=== PATIENT | male | born 1945 | race Caucasian/White ===

== ENCOUNTER 2018-04-30 06:48 | Emergency (ER) | payer MEDICARE, OTHER ==
[~2018-04-30] VITALS: Ht 177.8 cm; Wt 83.0 kg
--- OUTSIDE RECORDS SUMMARY | 2018-04-30 06:55 | XMS REPORT | Continuity of Care Document ---
Author Author [facility] Organization [facility] Address Unknown Phone Unavailable Allergies There is no data. Medications There is no data. Problems Date Dx Coded Attending Type Code Diagnosis Diagnosed By 06/12/2015 ROLANDO QUINTANILLA MD Ot R01.1 06/18/2015 ROLANDO QUINTANILLA MD Ot R01.1 Procedures There is no data. Results There is no data. Encounters ACCT No. Visit Date/Time Discharge Status Pt. Type Provider Facility Loc./Unit Complaint [id number] 05/22/2015 12:43:00 05/22/2015 23:59:59 CLS Outpatient ROLANDO QUINTANILLA MD [facility] CARD [id number] 11/26/2013 14:33:00 11/26/2013 23:59:59 CLS Outpatient
[2018-04-30] MEDS ORDERED: ATOR20TA66 (07:45)
[2018-04-30] MEDS ORDERED: LISI-552 (07:45)
[2018-04-30 08:12] LABS: ALANINE AMINOTRANSFERASE 28 U/L (0-55); ALBUMIN 4.3 GM/DL (3.2-4.5); ALKALINE PHOSPHATASE 57 U/L (40-136); BUN/CREATININE RATIO 17; CALCIUM 9.7 MG/DL (8.5-10.1); CARBON DIOXIDE 23 MMOL/L (21-32); CHLORIDE 108 MMOL/L (98-107); CREATINE KINASE 99 U/L (30-200); CREATININE SERUM 1.06 MG/DL (0.60-1.30); GFR ESTIMATED > 60; GLUCOSE 106 MG/DL (70-105); MAGNESIUM 2.3 MG/DL (1.8-2.4); POTASSIUM 4.4 MMOL/L (3.6-5.0); SODIUM 139 MMOL/L (135-145); TOTAL PROTEIN 7.4 GM/DL (6.4-8.2)
--- NOTE | 2018-04-30 08:55 | ED General ---
General Chief Complaint: Cardiac/General Problems Stated Complaint: HIGH BLOOD PRESSURE 194/109 Nursing Triage Note: PT PRESENTS TO ER WITH COMPLAINT OF DIZZINESS, FEELING WEIRD, AND HEADACHE. STATES HEADACHE STARTED LAST NIGHT. STATES BLOOD PRESSURE THIS MORNING WAS HIGH. HIGHEST WAS 190/100 Nursing Sepsis Screen: No Definite Risk Source of Information: Patient Exam Limitations: No Limitations History of Present Illness Date Seen by Provider: Apr 30, 2018 Time Seen by Provider: 08:11 Initial Comments Here with report of high blood pressure and dizziness this morning. Did have an episode of sweating. Stated he had a headache last night and took some Tylenol. This morning his blood pressure was high he felt a little weak and dizzy. Did note the sweating when he was having this issue. All of this is subsequently resolved although his blood pressure remains slightly elevated. Normally takes lisinopril just at night. Denies nausea or vomiting. Denies chest pain or breathing problems. Timing/Duration: 12-24 Hours Severity: Mild, Moderate Associated Systoms: No Chest Pain, No Cough; Diaphoresis; No Fever/Chills; Headaches; No Nausea/Vomiting, No Shortness of Air, No Weakness Allergies and Home Medications Allergies Coded Allergies: No Known Drug Allergies (Unverified , 04/30/18) Patient Home Medication List Home Medication List Reviewed: Yes Review of Systems Review of Systems Constitutional: see HPI; No chills, No fever EENTM: no symptoms reported Respiratory: no symptoms reported Cardiovascular: see HPI; No chest pain; other (dizziness and high blood pressure) Gastrointestinal: no symptoms reported Genitourinary: no symptoms reported Musculoskeletal: no symptoms reported Skin: no symptoms reported Psychiatric/Neurological: See HPI, Headache (global mild); Denies Weakness; Other (dizziness) Hematologic/Lymphatic: No Symptoms Reported All Other Systems Reviewed Negative Unless Noted: Yes Past Ctlhvem-Tscocl-Wnyypj Hx Past Med/Social Hx: Reviewed Nursing Past Med/Soc Hx Patient Social History Alcohol Use: Denies Use Recreational Drug Use: No Smoking Status: Never a Smoker Recent Foreign Travel: No Contact w/Someone Who Travel: No Recent Infectious Disease Expo: No Recent Hopitalizations: No Immunizations Up To Date Tetanus Booster (TDap): Unknown PED Vaccines UTD: Yes Seasonal Allergies Seasonal Allergies: No Past Medical History Surgeries: Yes Orthopedic, Tonsillectomy Respiratory: No Cardiac: Yes High Cholesterol, Hypertension Neurological: No Genitourinary: No Gastrointestinal: No Musculoskeletal: No Endocrine: No HEENT: No Cancer: No Integumentary: No Blood Disorders: No Family Medical History Reviewed Nursing Family Hx Physical Exam Vital Signs Vital Signs - First Documented 04/30/18 07:30 Temp 98.9 Pulse 59 Resp 20 B/P (MAP) 190/87 (121) Pulse Ox 96 O2 Delivery Room Air Capillary Refill : Less Than 3 Seconds Height, Weight, BMI Height: 5'10.00" Weight: 183lbs. oz. 83.990246bn; BMI Method:Stated General Appearance: No Apparent Distress, WD/WN HEENT: PERRL/EOMI, Pharynx Normal Neck: Non Tender, Supple Respiratory: Lungs Clear, Normal Breath Sounds Cardiovascular: Regular Rate, Rhythm, No Murmur Gastrointestinal: Non Tender, Soft Back: Normal Inspection, No CVA Tenderness, No Vertebral Tenderness Extremity: Normal Range of Motion, Non Tender Neurologic/Psychiatric: Alert, Oriented x3 Skin: Normal Color, Warm/Dry Progress/Results/Core Measures Suspected Sepsis Recent Fever Within 48 Hours: No Infection Criteria Present: None New/Unexplained Altered Menta: No Sepsis Screen: No Definite Risk SIRS Temperature:98.9 Pulse: 59 Respiratory Rate: 20 Blood Pressure 190 /87 Mean: 121 Laboratory Tests 04/30/18 07:40: Creatinine 1.06, Total Bilirubin 1.0 Results/Orders Lab Results Laboratory Tests Test 04/30/18 07:40 Range/Units D-Dimer 0.60 H 0.00-0.49 UG/ML Sodium Level 139 135-145 MMOL/L Potassium Level 4.4 3.6-5.0 MMOL/L Chloride Level 108 H 98-107 MMOL/L Carbon Dioxide Level 23 21-32 MMOL/L Anion Gap 8 5-14 MMOL/L Blood Urea Nitrogen 18 7-18 MG/DL Creatinine 1.06 0.60-1.30 MG/DL Estimat Glomerular Filtration Rate > 60 BUN/Creatinine Ratio 17 Glucose Level 106 H 70-105 MG/DL Calcium Level 9.7 8.5-10.1 MG/DL Corrected Calcium 9.5 8.5-10.1 MG/DL Magnesium Level 2.3 1.8-2.4 MG/DL Total Bilirubin 1.0 0.1-1.0 MG/DL Aspartate Amino Transf (AST/SGOT) 20 5-34 U/L Alanine Aminotransferase (ALT/SGPT) 28 0-55 U/L Alkaline Phosphatase 57 40-136 U/L Total Creatine Kinase 99 30-200 U/L Troponin I < 0.028 <0.028 NG/ML Total Protein 7.4 6.4-8.2 GM/DL Albumin 4.3 3.2-4.5 GM/DL My Orders Orders - SHELLEY DIAZ MD Ekg Tracing (04/30/18 07:50) Monitor-Rhythm Ecg Trace Only (04/30/18 07:50) Comprehensive Metabolic Panel (04/30/18 07:50) Creatine Kinase (04/30/18 07:50) Magnesium (04/30/18 07:50) Fibrin Degradation Products (04/30/18 08:26) Troponin I (04/30/18 08:26) Ct Angio Chest W (04/30/18 08:55) Ct Head Wo (04/30/18 08:55) Iohexol Injection (Omnipaque 350 Mg/Ml 1 (04/30/18 09:15) Contrast Received (Contrast Received) (04/30/18 09:15) Ns (Ivpb) (Sodium Chloride 0.9% Ivpb Bag (04/30/18 09:15) Ns Iv 1000 Ml (Sodium Chloride 0.9%) (04/30/18 10:11) Amlodipine Tablet (Norvasc Tablet) (04/30/18 10:15) Medications Given in ED Current Medications Medications Dose Ordered Sig/[place] Route Start Time Stop Time Status Last Admin Dose Admin Amlodipine Besylate 5 mg ONCE ONCE PO 04/30/18 10:15 04/30/18 10:16 DC 04/30/18 10:31 5 MG Iohexol 125 ml ONCE ONCE IV 04/30/18 09:15 04/30/18 09:16 DC 04/30/18 09:21 125 ML Sodium Chloride 100 ml ONCE ONCE IV 04/30/18 09:15 04/30/18 09:16 DC 04/30/18 09:21 80 ML Sodium Chloride 1,000 ml @ 0 mls/hr Q0M ONCE IV 04/30/18 10:11 04/30/18 10:13 DC 04/30/18 10:30 1,000 MLS/HR Vital Signs/I&O 04/30/18 07:30 Temp 98.9 Pulse 59 Resp 20 B/P (MAP) 190/87 (121) Pulse Ox 96 O2 Delivery Room Air Capillary Refill : Less Than 3 Seconds Blood Pressure Mean: 121 Progress Note : Progress Note Seen and evaluated. IV, labs, EKG ordered. Monitor patient. D-dimer slightly elevated. We will get a chest CT. Normal saline 1000 mL bolus after. Monitor patient. 0855: D-dimer is slightly elevated. We will get CT angiogram of the chest as well as noncontrast CT of the head due to the dizziness and hypertension. Monitor patient. 1015: I have discussed the case with Dr. Alejandra earlier. Patient's blood pressure is elevated and to 170s and 180s systolic now. Amlodipine [address] Alejandra's instructions were patient was negative on CT scans that he would see him in the office. We will initiate amlodipine 5 mg by mouth daily until patient seen by Dr. Alejandra. CT scans negative. We will discharge the patient after fluid bolus is complete. 1125: Fluid bolus complete. Amlodipine has been given. Blood pressure still in the 170s over 90s but patient is feeling better. We will walk the patient make sure he is doing okay. Tolerated well. Discharged home with return precautions. Patient verbalize understanding instructions and agreement with plan. ECG Initial ECG Impression Date: Apr 30, 2018 Initial ECG Impression Time: 07:54 Initial ECG Rate: 49 Initial ECG Rhythm: Normal Sinus Initial ECG Intervals: Normal Initial ECG Comparisson: No Previous ECG Available Comment Seen and evaluated. Sinus bradycardia with LVH. No evidence of ST elevation PR. No previous EKGs available for comparison. Interpreted by me. Diagnostic Imaging Diagonstic Imaging: CT Plain Films/CT/US/NM/MRI: chest Comments [facility] [place], [place] NAME: MARIAH MCKINNEY [facility] REC#: [id number] PT STATUS: REG ER : 1945 PHYSICIAN: SHELLEY DIAZ MD ADMIT DATE: 04/30/18/ER Draft Date of Exam:04/30/18 CT ANGIO CHEST W PROCEDURE: CT angiography of the chest with contrast. TECHNIQUE: Multiple contiguous axial images were obtained through the chest after uneventful bolus administration of intravenous contrast. 2D reconstructed CTA MIP acquisitions were also performed. INDICATION: Hypertension with headache and dizziness. There is good opacification of the pulmonary arteries without intraluminal filling defect identified. Thoracic aorta is of normal caliber with mild atherosclerotic calcification. Coronary artery calcifications are also noted. The lungs appear clear. There is no evidence of pathologic adenopathy in the chest. No pleural or pericardial fluid is identified. Upper abdominal sections reveal calcified granulomas in the spleen with multiple low-density nodules which likely represent hepatic cysts. There is mild hiatal hernia. IMPRESSION: No CTA evidence of pulmonary embolism or other acute abnormality in the thorax. Dictated on workstation # [id number] Dict: 04/30/18 0946 Trans: 04/30/1849 CV [id number] Interpreted by: DAVIS CAMERON MD Electronically signed by: Janetgonsbora Imaging: CT Plain Films/CT/US/NM/MRI: head Comments [facility] [place] [place] NAME: MARIAH MCKINNEY [facility] REC#: [id number] PT STATUS: REG ER : 1945 PHYSICIAN: SHELLEY DIAZ MD ADMIT DATE: 04/30/18/ER Draft Date of Exam:04/30/18 CT HEAD WO PROCEDURE: CT head without contrast. TECHNIQUE: Multiple contiguous axial images were obtained through the brain without the use of intravenous contrast. INDICATION: Hypertension and headache. Ventricles and sulci are diffusely prominent. There is no evidence of intracranial hemorrhage. There is no geographic low density to indicate a territorial infarct. There is atherosclerotic calcification within the distal internal carotid and vertebral arteries. Calvarium is intact and the visualized paranasal sinuses are clear. Impression: No acute intracranial abnormality is detected. Dictated on workstation # [id number] Dict: 04/30/1844 Trans: 04/30/18946 CV [id number] Interpreted by: DAVIS CAMERON MD Electronically signed by: Departure Impression Primary Impression: Uncontrolled hypertension Additional Impression: Headache Qualified Codes: R51 - Headache Disposition: 01 HOME, SELF-CARE Condition: Improved Departure-Patient Inst. Decision time for Depature: 11:30 Referrals: ROLANDO ALEJANDRA MD (PCP/Family) Primary Care Physician Patient Instructions: Dizziness, Nonvertigo, (DC), Headache, Adult (DC), High Blood Pressure (DC) Add. Discharge Instructions: All discharge instructions reviewed with patient and/or family. Voiced understanding. Take medications as directed. Return for worse pain, fever, vomiting, chest pain, breathing problems, weakness, dizziness, difficulty with speaking, blood pressure greater than 200/110 or other concerns as needed. Call and make an appointment with Dr. Alejandra for this week. Continue home medications as previously prescribed. Scripts Amlodipine Besylate (Amlodipine Besylate) 5 Mg Tablet 5 MG PO DAILY, #30 TAB Prov: SHELLEY DIAZ MD 04/30/18 Copy Copies To 1: ROLANDO ALEJANDRA MD, TIMOTHY D MD Apr 30, 2018 08:55
[2018-04-30] MEDS ORDERED: NS 100 ML (IVPB) BAG IV ONE (09:15)
[2018-04-30] MEDS ORDERED: IOHEXOL 350 MG/ML 150 ML (OMNIPAQUE 350) VIAL IV ONE (09:15)
[2018-04-30] MEDS ORDERED: RECEIVED CONTRAST (Hold Metformin) IV SCH (09:15)
--- NOTE | 2018-04-30 09:48 | Diagnostic Imaging Report ---
PROCEDURE: CT head without contrast. TECHNIQUE: Multiple contiguous axial images were obtained through the brain without the use of intravenous contrast. INDICATION: Hypertension and headache. Ventricles and sulci are diffusely prominent. There is no evidence of intracranial hemorrhage. There is no geographic low density to indicate a territorial infarct. There is atherosclerotic calcification within the distal internal carotid and vertebral arteries. Calvarium is intact and the visualized paranasal sinuses are clear. Impression: No acute intracranial abnormality is detected. Dictated by: Dictated on workstation # [id number]
--- NOTE | 2018-04-30 09:50 | Diagnostic Imaging Report ---
PROCEDURE: CT angiography of the chest with contrast. TECHNIQUE: Multiple contiguous axial images were obtained through the chest after uneventful bolus administration of intravenous contrast. 2D reconstructed CTA MIP acquisitions were also performed. INDICATION: Hypertension with headache and dizziness. There is good opacification of the pulmonary arteries without intraluminal filling defect identified. Thoracic aorta is of normal caliber with mild atherosclerotic calcification. Coronary artery calcifications are also noted. The lungs appear clear. There is no evidence of pathologic adenopathy in the chest. No pleural or pericardial fluid is identified. Upper abdominal sections reveal calcified granulomas in the spleen with multiple low-density nodules which likely represent hepatic cysts. There is mild hiatal hernia. IMPRESSION: No CTA evidence of pulmonary embolism or other acute abnormality in the thorax. Dictated by: Dictated on workstation # [id number]
[2018-04-30] MEDS ORDERED: NS IV 1000 ML 1,000 ML IV ONE (10:11)
[2018-04-30] MEDS ORDERED: amLODIPine 5 MG (NORVASC) TAB PO ONE (10:15)
[2018-04-30] MEDS ORDERED: AMLO5TAB9 PO (11:38)
[2018-04-30 11:44] VITALS: BP 178/90
== END 2018-04-30 11:44 | disposition home or self-care (01) ==
LOC: EDUNIT# 06:48 → ER 06:51
DX: I10 Essential (primary) hypertension (principal); R51 Headache; E78.00 Pure hypercholesterolemia, unspecified; Z90.89 Acquired absence of other organs
CPT/HCPCS: 36415; 70450; 71275; 80053; 82550; 83735; 84484; 85379; 93005; 93041